=== PATIENT | female | born 1975 | race African-American/Black ===

== ENCOUNTER 2024-07-29 15:19 | Observation (INO) ==
[2024-07-29] MEDS ORDERED: ACETAMINOPHEN 500 MG TABLET ONE (15:56)
[2024-07-29] MEDS ORDERED: 0.9 % SODIUM CHLORIDE 1000 ML 1,000 ML IV ONE (15:56)
[2024-07-29] MEDS: ACETAMINOPHEN 500 MG TABLET PO ONE (15:58)
[2024-07-29] MEDS: 0.9 % SODIUM CHLORIDE 1000 ML 1,000 ML IV ONE (15:58)
[2024-07-29 16:04] LABS: Hematocrit 35.8 % (35.9-46.7); Mean Corpuscular Volume 80.9 fl (81.0-93.7); White Blood Count 7.8 K/uL (4.3-9.3)
[2024-07-29 16:05] LABS: Basophils%(Percent) Auto 1.1 (0.1-0.85); Eosinophils%(Percent) Auto 1.5 % (0.4-2.8); Granulocytes % - Auto 51.3 % (47.8-71.3); Monocytes %(Percent)- Auto 10.3 % (3.6-9.8); Platelet Count 369 K/uL (152-353)
[2024-07-29 16:06] LABS: Basophils #(Absolute) Auto 0.1 (0.0-0.1); Eosinophils#(Absolute)Auto 0.1 (0.0-0.2); Monocytes #(Absolute)- Auto 0.9 (1.1-3.1)
[2024-07-29 16:47] LABS: Specific Gravity Urine 1.025 (1.001-1.035); Urine Appearance CLEAR (CLEAR); Urine Blood NEGATIVE (NEG - TRACE); Urine Color YELLOW (STRAW/YELL.); Urine Urobilinogen Normal (NORMAL)
--- NOTE | 2024-07-29 18:32 | Emergency Department Note ---
HPI - General Adult General Chief complaint: Neuro Symptoms/Deficit Stated complaint: tingling on right side Time Seen by Provider: 07/29/24 15:36 Source: patient Mode of arrival: walk-in Limitations: no limitations History of Present Illness HPI narrative: 49-year-old female patient presents conscious alert and oriented x 4 to the ER complaining some numbness to the right side of her face her lips seems to tingle down the right side of her body. Patient states that she noticed the symptoms when she woke up at 8 AM this morning. Patient states that she went to sleep at 12 AM this morning and that she was normal with no feeling of numbness or tingling. Denies any neck or back pain. Denies any weakness. Denies any unsteady gait. MD complaint: numbness to right side of body Onset (ago): hour(s) (16) Location: Reports face, right, upper extremity and lower extremity Radiation: Reports extremity Severity: mild Quality: Reports other (tingling) Pain Consistency: Reports intermittent Relieving factors: Reports rest Exacerbating factors: Reports none Associated symptoms: Reports denies other symptoms Treatments prior to arrival: Reports none Related Data Home Medications Medication Instructions Recorded Confirmed losartan 25 mg tablet 25 mg PO DAILY 07/29/24 07/29/24 Allergies Allergy/AdvReac Type Severity Reaction Status Date / Time No Known Drug Allergies Allergy Verified 07/29/24 15:34 Review of Systems Status of ROS 10 or more systems reviewed and unremark able except as noted in history and below Musculoskeletal Reports: other (tingling to the right side of the body) PFSH PFS Medical History Hypertension Surgical History History of Social History Smoking status: never smoker Exam Constitutional: normal general appearance, no apparent distress and abnormal body habitus (overweight) Vital Signs - 24 hr 07/29/24 15:22 07/29/24 16:00 07/29/24 17:00 Temperature 98.2 F Pulse Rate 107 H 91 H 96 H Respiratory Rate 18 20 20 Blood Pressure 136/85 150/83 129/86 Pulse Oximetry 100 99 100 Oxygen Delivery Me thod Room Air Room Air Room Air 07/29/24 17:30 Temperature Pulse Rate 94 H Respiratory Rate 18 Blood Pressure 132/78 Pulse Oximetry 100 Oxygen Delivery Me thod Room Air HENMT: normocephalic, head/scalp atraumatic and hearing grossly normal bilaterally Eyes: PERRL, EOMs intact bilaterally and conjunctivae normal Neck/C-Spine: visual inspection normal, trachea midline, cervical spine nontender and cervical full ROM noted Lymph: no lymphadenopathy noted and no lymphedema noted Chest: inspection of chest normal and palpation of chest normal Respiratory: breath sounds equal bilaterally, normal respiratory effort and clear to auscultation bilaterally Cardiovascular: normal heart rate noted and regular rhythm noted Gastrointestinal: abdomen normal to inspection, abdomen soft to palpation and nontender to palpation Genitourinary: no CVA tenderness Back/Pelvis: spine normal to inspection, no thoracic spine tenderness and no lumbar spine tenderness Extremities: normal to inspection, normal to palpation, no tenderness and full ROM 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 Abdomen is soft and nontender on palpation. Normoactive bowel sounds. No rigidity or distention is noted. Patient is afebrile on evaluation. NIH stroke scale is 0. No drift or droop. No slurred speech. Patient is able to ambulate unassisted. Gait is steady. CT head shows no acute intracranial findings. EKG shows normal sinus rhythm with no ectopy noted. Labs are unremarkable. Patient's evaluation is unremarkable. Last known normal was 12 AM this morning. Patient woke at 8 AM when she started to feel some numbness and tingling to the right side of her body. At no time did she experience any weakness slurred speech dizziness unsteady gait or any other symptoms associated with a CVA. Symptoms have resolved. Patient denies any pain to her neck or back denies any known injury or trauma that may have caused the numbness or tingling to the right side of her body. I have consulted with Dr Nguyen neurology via [facility] who has recommended that pt be admitted to obs with MRI in the am. I spoke with Grzegorz Knapp [employer] hospitalist who has accepted pt to obs. Vital Signs Vital signs: Vital Signs Temperature 98.2 F 07/29/24 15:22 Pulse Rate 107 H 07/29/24 15:22 Respiratory Rate 18 07/29/24 15:22 Blood Pressure 136/85 07/29/24 15:22 Pulse Oximetry 100 07/29/24 15:22 Oxygen Delivery Method Room Air 07/29/24 15:22 Temperature 98.2 F 07/29/24 15:22 Pulse Rate 94 H 07/29/24 17:30 Respiratory Rate 18 07/29/24 17:30 Blood Pressure 132/78 07/29/24 17:30 Pulse Oximetry 100 07/29/24 17:30 Oxygen Delivery Method Room Air 07/29/24 17:30 Medical Decision Making Differential Diagnosis Differential Diagnosis: CVA, TIA, herniation, degenerative disc disease, tingling, numbness, SAH, S Lab Data Lab results reviewed: Yes I reviewed the patient's lab results Labs: Lab Results 07/29/24 07/29/24 Range/Units 15:30 15:55 WBC 7.8 (4.3-9.3) K/uL RBC 4.4 (4.00-5.50) M/uL Hgb 11.2 L (12.5-15.8) gm/dL Hct 35.8 L (35.9-46.7) % MCV 80.9 L (81.0-93.7) fl MCH 25.2 L (27.6-32.2) pg MCHC 31.2 L (33.1-35.3) g/dl RDW 17.3 H (11.4-14.2) % Plt Count 369 H (152-353) K/uL MPV 7.8 (6.9-10.8) fl Gran % 51.3 (47.8-71.3) % Lymph % (Auto) 35.3 (20.0-43.0) % [place] % (Auto) 10.3 H (3.6-9.8) % Eos % (Auto) 1.5 (0.4-2.8) % Baso % (Auto) 1.1 H (0.1-0.85) Lymph # (Auto) 2.8 (1.1-3.1) [place] # (Auto) 0.9 L (1.1-3.1) Eos # (Auto) 0.1 (0.0-0.2) Baso # (Auto) 0.1 (0.0-0.1) Absolute Gran (auto) 4.0 (2.3-6.0) Sodium 138 (136-145) mmol/L Potassium 4.0 (3.6-5.2) mmol/L Chloride 101.0 (98-107) mmol/L Carbon Dioxide 27 (21-32) mmol/L Anion Gap 10.0 (4-14) mEq/L BUN 15 (7-18) mg/dL Creatinine 0.8 (0.6-1.3) mg/dL Estimated GFR 90.8 (>59.9) Glucose 97 (70-110) mg/dL Calcium 9.4 (8.5-10.1) mg/dL Total Bilirubin 0.24 (0.0-1.0) mg/dL AST 12 L (15-37) U/L ALT 18 L (30-65) U/L Alkaline Phosphatase 70 (50-136) U/L Total Protein 8.1 (6.4-8.2) g/dL Albumin 3.2 L (3.4-5.0) g/dL Urine Color Yellow (STRAW/YELL.) Urine Appearance Clear (CLEAR) Ur Specific [place] 1.025 (1.001-1.035) Urine Protein Trace (NEGATIVE) Urine Glucose (UA) Normal (NORMAL) Urine Ketones Negative (NEGATIVE) Urine Occult Blood Negative (NEG - TRACE) Urine Nitrite Negative (NEGATIVE) Urine Bilirubin Negative (NEGATIVE) Urine Urobilinogen Normal (NORMAL) Ur Leukocyte Esterase Negative (NEGATIVE) Urine Test Negative (Negative) Fluid pH 6.0 (5 - 9) ECG Data Attestation: I personally reviewed and interpreted this ECG as follows: Prior ECG tracings: not available for review Discharge Plan Discharge Patient Disposition: Admitted As Observation Condition: Stable Clinical Impression: Brain TIA Time of Disposition: 18:23
[2024-07-29] MEDS: MONTELUKAST SODIUM 10 MG TABLET PO ONE (21:35)
[2024-07-30 08:49] VITALS: RESP 19
[2024-07-30] MEDS: ASPIRIN 325 MG TABLET PO SCH (11:26)
[2024-07-30] MEDS: LOSARTAN POTASSIUM 50 MG TABLET PO SCH (11:26)
--- NOTE | 2024-07-30 11:53 | Short Stay Summary ---
H&P: HPI History of Present Illness Chief complaint: tingling on right side Narrative: Ms. Pickett was admitted on 07/29/24 from the ED where she awoke that morning at 8am with R eyelid drooping, facial numbness, lip tinging, parathesia to R arm and leg, and generalized weakness. She admits to some nausea, vomited last night, and diarrhea this AM but she had a fish sandwich last night. She does take losartan at home 25mg but admits that compliance is an issue but she has taken it the last week because she felt as if her BP wasn't too low. Last saw PCP in May. CBC, CMP, UA were negative. CT SHEARER was negative as well. REACH consult was conducted in ED with recommendation for OBS and MRI in AM. Lipid panel did show elevated LDL. Patient is asymptomatic this morning and states symptoms did resolve near midnight. MRI SHEARER was negative. Patient was started on ASA and atorvastatin for OP management. Patient discharged home on 07/30/24 Review of Systems Status of ROS 10 or more systems reviewed and unremark able except as noted in history and below Musculoskeletal Reports: other (tingling to the right side of the body) [facility] Medical History (Updated 07/30/24 @ 11:57 by Grzegorz Knapp NP) TIA (transient ischemic attack) Hypertension Surgical History History of Social History Smoking status: never smoker Problems where you live: no known problems Highest level of school completed/degree received: [employer] Meds Home Medications and Allergies Home Medications Medication Instructions Recorded Confirmed Type losartan 25 mg tablet 25 mg PO DAILY 07/29/24 07/29/24 History aspirin 325 mg tablet 325 mg PO DAILY #30 tabs 07/30/24 Rx atorvastatin 40 mg tablet 40 mg PO BEDTIME #30 tabs 07/30/24 Rx Allergies Allergy/AdvReac Type Severity Reaction Status Date / Time No Known Drug Allergies Allergy Verified 07/29/24 15:34 Exam Constitutional: normal general appearance, no apparent distress and abnormal body habitus (overweight) Vital Signs - 24 hr 07/29/24 15:22 07/29/24 16:00 07/29/24 17:00 Temperature 98.2 F Pulse Rate 107 H 91 H 96 H Pulse Rate [Left R adial] Respiratory Rate 18 20 20 Blood Pressure 136/85 150/83 129/86 Blood Pressure [Le ft Arm] Pulse Oximetry 100 99 100 Oxygen Delivery Me thod Room Air Room Air Room Air 07/29/24 17:30 07/29/24 18:11 07/29/24 19:14 Temperature Pulse Rate 94 H 94 H 92 H Pulse Rate [Left R adial] Respiratory Rate 18 18 18 Blood Pressure 132/78 122/81 143/80 Blood Pressure [Le ft Arm] Pulse Oximetry 100 100 96 Oxygen Delivery Ri thod Room Air Room Air 07/29/24 21:35 07/30/24 00:00 07/30/24 04:00 Temperature 98.2 F 98.3 F 97.8 F Pulse Rate Pulse Rate [Left R adial] 91 H 87 87 Respiratory Rate 19 17 18 Blood Pressure Blood Pressure [Le ft Arm] 128/89 115/75 102/55 Pulse Oximetry 96 98 97 Oxygen Delivery Ri thod Room Air Room Air Room Air 07/30/24 08:00 Temperature 97.8 F Pulse Rate Pulse Rate [Left R adial] 83 Respiratory Rate 19 Blood Pressure Blood Pressure [Le ft Arm] 127/86 Pulse Oximetry 97 Oxygen Delivery Me thod Room Air HENMT: normocephalic, head/scalp atraumatic and hearing grossly normal bilaterally Eyes: PERRL, EOMs intact bilaterally and conjunctivae normal Neck/C-Spine: visual inspection normal, trachea midline, cervical spine nontender and cervical full ROM noted Lymph: no lymphadenopathy noted and no lymphedema noted Chest: inspection of chest normal and palpation of chest normal Respiratory: breath sounds equal bilaterally, normal respiratory effort and clear to auscultation bilaterally Cardiovascular: normal heart rate noted and regular rhythm noted Gastrointestinal: abdomen normal to inspection, abdomen soft to palpation and nontender to palpation Genitourinary: no CVA tenderness Back/Pelvis: spine normal to inspection, no thoracic spine tenderness and no lumbar spine tenderness Extremities: normal to inspection, normal to palpation, no tenderness and full ROM Neurology: costumed character II-XII intact, no movement abnormality noted, no focal motor deficit noted, no sensory deficits noted, deep tendon reflexes 2+ bilaterally, gait normal, speech normal, coordination normal, no pronator drift noted, no fasciculations noted and GCS normal Psychiatry: mental status grossly normal, oriented x3, thought process normal, cooperative, affect normal, psychomotor activity normal and memory normal Skin: skin color normal Assessment and Plan Assessment and Plan (1) TIA (transient ischemic attack): Code(s): G45.9 - Transient cerebral ischemic attack, unspecified Plan Admit VS q4 Neuro q4 Cardiac diet ASA 325mg po daily Lipid panel, CBC, CMP Losartan 25mg po daily Atorvastatin 40mg po daily MRI SHEARER Carotid Doppler D/C home Results Labs Labs: CBC 07/29/24 Range/Units 15:55 WBC 7.8 (4.3-9.3) K/uL RBC 4.4 (4.00-5.50) M/uL Hgb 11.2 L (12.5-15.8) gm/dL Hct 35.8 L (35.9-46.7) % Plt Count 369 H (152-353) K/uL Gran % 51.3 (47.8-71.3) % Lymph % (Auto) 35.3 (20.0-43.0) % [place] % (Auto) 10.3 H (3.6-9.8) % Eos % (Auto) 1.5 (0.4-2.8) % Baso % (Auto) 1.1 H (0.1-0.85) Lymph # (Auto) 2.8 (1.1-3.1) [place] # (Auto) 0.9 L (1.1-3.1) Eos # (Auto) 0.1 (0.0-0.2) Baso # (Auto) 0.1 (0.0-0.1) Absolute Gran (auto) 4.0 (2.3-6.0) CMP 07/29/24 15:55 Sodium 138 Potassium 4.0 Chloride 101.0 Carbon Dioxide 27 BUN 15 Creatinine 0.8 Glucose 97 Calcium 9.4 Liver Function 07/29/24 Range/Units 15:55 Total Bilirubin 0.24 (0.0-1.0) mg/dL AST 12 L (15-37) U/L ALT 18 L (30-65) U/L Alkaline Phosphatase 70 (50-136) U/L Albumin 3.2 L (3.4-5.0) g/dL Urine 07/29/24 15:30 Urine Color Yellow Urine Appearance Clear Ur Specific [place] 1.025 Urine Protein Trace Urine Glucose (UA) Normal Imaging Radiologist's impression: [place] [address] CT Scan Report Signed Patient: Cassie Picektt MR#: [id number] : 1975 Acct:[id number] Age/Sex: 49 / F ADM Date: 07/29/24 Loc: ED Attending Dr: Ordering Physician: Kolton Ritchie NP Date of Service: 07/29/24 Procedure(s): CT head/brain wo con Accession Number(s): [id number] cc: Kolton Ritchie CANDLE P[employer]ER; Rossana William NP~ EXAM: CT HEAD/BRAIN WO CON HISTORY: R SIDED NUMBNESSR SIDED NUMBNESS; COMPARISON: None available. TECHNIQUE: Multiple axial images of the brain were obtained from the skull base to the vertex without administration of IV contrast. Dose reduction techniques including Automated Exposure Control (AEC) and adjustment of mA and kV were utilized. FINDINGS: No acute intraparenchymal hemorrhage or mass can be identified. No extra-axial fluid collections are seen. No alteration in the attenuation of the brain parenchyma can be identified to suggest acute or subacute ischemic change. The ventricular system is symmetric and nondilated. The extracranial structures appear unremarkable. IMPRESSION: 1. No acute intracranial process can be identified. THIS IS AN ELECTRONICALLY VERIFIED FINAL REPORT 07/29/2024 4:01 PM - Electronically signed by Ambrose Knox MD Dictated By: Jeremie Knox M.D. Signed By: 07/29/24 1601 DD/ 1546 TD/TT: 07/29/24 1556 Wooden Frame Builder: [email or web address] [place] [id number] Ultrasound Report Signed Patient: Cassie Pickett MR#: [id number] : 1975 Acct:[id number] Age/Sex: 49 / F ADM Date: 07/29/24 Loc: [place] 1112-[address]: Grzegorz Knapp NP Ordering Physician: Grzegorz Knapp NP Date of Service: 07/30/24 Procedure(s): US carotid doppler BI Accession Number(s): [id number] cc: Grzegorz Knapp [employer]ER~ EXAM: US CAROTID DOPPLER BI HISTORY: RT side numbness; COMPARISON: None available. TECHNIQUE: Multiple chambers scale, duplex and color flow Doppler images of the right and left carotid arterial system were obtained. The vertebral arterial system was evaluated as well. FINDINGS: Nonocclusive color flow Doppler is seen throughout the right and left carotid arterial system. There is [id number] atherosclerotic plaque formation of the bilateral carotid bulbs and proximal ICAs with associated intimal thickening but without evidence for high-grade stenosis (>70%) or occlusion of the carotid arteries. The right and left vertebral artery demonstrate antegrade flow. There is patent flow and normal duplex waveforms within the right and left external carotid arteries. Peak right ICA velocity: 100 centimeter/seconds. Peak right CCA velocity: 110 centimeter/seconds. Right ICA to CCA ratio: 0.9. Peak left ICA velocity: 121 centimeter/seconds. Peak left CCA velocity: 105 centimeter/seconds. Left ICA to CCA ratio: 1.15. IMPRESSION: No hemodynamically significant carotid artery stenosis is seen. Mild/moderate bilateral CCA and proximal ICA atherosclerosis. Appropriate, antegrade, vertebral arterial flow seen bilaterally. THIS IS AN ELECTRONICALLY VERIFIED FINAL REPORT 07/30/2024 3:42 PM - Electronically signed by Layo Bland MD Dictated By: Sebastian Bland III, MD Signed By: 07/30/24 1542 DD/ 1420 TD/TT: 07/30/24 1420 Wooden Frame Builder: [employer]CL[email or web address] [address] [place] [address] Magnetic Resonance Report Signed Patient: Cassie Pickett MR#: [id number] : 1975 Acct:[id number] Age/Sex: 49 / F ADM Date: 07/29/24 Loc: [place] 1112-[address]: Grzegorz Knapp NP Ordering Physician: Grzegorz Knapp NP Date of Service: 07/30/24 Procedure(s): MR head wo/w con Accession Number(s): [id number] cc: ~ EXAM: MR HEAD WO/W CON HISTORY: numbness tingling R face; weakness; GFR:90.8 16 ML ProHance COMPARISON: None available. TECHNIQUE: Multiplanar multi-sequence MRI of the brain was obtained. Sagittal T1, axial T1, axial T2, axial flair images, coronal T1, sagittal T1 post contrast, coronal T1 postcontrast, axial T1 postcontrast images were obtained. FINDINGS: The midline structures appear intact. The posterior fossa is unremarkable. The sulcal markings of the brain are normal in their appearance. Normal chambers-white differentiation is maintained. No evidence for intraparenchymal hemorrhage or mass can be identified. No extra-axial fluid collections or subarachnoid hematoma can be seen. Evaluation of the diffusion weighted images demonstrates no evidence for acute ischemic change. The cerebral pontine angle is normal in its contour without evidence for mass. The ventricular system appears symmetric and nondilated. Postcontrast enhancement demonstrates no evidence for an enhancing lesion such as mass or vascular malformation. IMPRESSION: Unremarkable MRI of the brain with and without contrast. THIS IS AN ELECTRONICALLY VERIFIED FINAL REPORT 07/30/2024 3:33 PM - Electronically signed by Ambrose Knox MD Dictated By: Jeremie Knox M.D. Signed By: 07/30/24 1533 DD/ 1327 TD/TT: 07/30/24 1332 Wooden Frame Builder: DS: Providers Provider Date of admission: 07/29/24 18:58 Primary care physician: Rossana William NP DS: Summary Status at Discharge Overall status at discharge: patient is back to baseline Time Spent with Patient Time attestation: Total time spent providing and/or coordinating discharge services: Discharge Plan Discharge Disposition: Home, Self-Care Condition: Stable Discharge Medications: New atorvastatin 40 mg Tablet 40 mg PO BEDTIME Qty: 30 0RF aspirin 325 mg Tablet 325 mg PO DAILY Qty: 30 0RF Continued losartan 25 mg tablet 25 mg PO DAILY Patient Comments: TAKE 1 TABLET BY MOUTH ONCE DAILY Discharge Orders: Discharge Order (Routine); Ordered 07/30/24 Ordered By: Grzegorz Knapp Activity: resume usual activities as tolerated Activity Detail: Work excuse 07/29/24/-08/01/24 Forms: Portal/Health Info Access Inst Follow-Ups: Rossana William NP [Primary Care Provider] -
[2024-07-30 13:58] VITALS: BP 151/99; PULSE 82; TEMP 97.7
[2024-07-30] MEDS ORDERED: ATORVASTATIN CALCIUM 40 MG TABLET PO SCH (21:00)
== END 2024-07-30 16:09 | disposition home or self-care (01) ==
LOC: ED 15:19 → MS 15:19
PROVIDERS: ADMIT Nurse Practitioner; ATTEND Nurse Practitioner
DX: Z79.82 Long term (current) use of aspirin; Z79.899 Other long term (current) drug therapy; Z86.73 Personal history of transient ischemic attack (TIA), and cerebral infarction without residual deficits; G45.9 Transient cerebral ischemic attack, unspecified; I10 Essential (primary) hypertension